=== PATIENT | female | born 1965 | race Caucasian/White ===

== ENCOUNTER 2024-12-01 13:01 | Emergency (ER) | payer OTHER, SELFPAY ==
[2024-12-01 13:02] VITALS: BP 105/68; PULSE 67; RESP 14; TEMP 36.6; O2SAT 97
[2024-12-01] MEDS: Lidocaine 1% Multi-Dose W/EPI 1/100,000 50 ML VIAL (13:33)
[2024-12-01] MEDS: Tetanus & Diphtheria Tox,ADULT 0.5 ML VIAL IM (13:39)
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
== END 2024-12-01 14:06 | disposition home or self-care (01) ==
PROVIDERS: Emergency Provider General Practice
DX: S81.812A Laceration without foreign body, left lower leg, initial encounter (principal); V18.0XXA Pedal cycle driver injured in noncollision transport accident in nontraffic accident, initial encounter
CPT/HCPCS: 12002; 90471; 90714; J2004